=== PATIENT | female | born 1960 ===

== ENCOUNTER → 2022-12-15 | Outpatient (CLI) | payer OTHER ==
--- NOTE | 2022-12-15 14:22 | XR ---
EXAMINATION TYPE: XR humerus LT DATE OF EXAM: 12/15/2022 COMPARISON: None HISTORY: Fall, pain TECHNIQUE: 2 view left humerus FINDINGS: No acute fracture or dislocation is evident. Shoulder and elbow joint spaces as visualized appear normal. Follow up exams can be performed 7-10 days of acute trauma for continued pain. IMPRESSION: 1. No acute osseous abnormality left humerus
--- NOTE | 2022-12-15 14:23 | XR ---
EXAMINATION TYPE: XR forearm LT DATE OF EXAM: 12/15/2022 COMPARISON: None HISTORY: Fall, pain TECHNIQUE: 2 view left forearm FINDINGS: Prior fixation of an ulnar fracture is evident. Radius aligns normally with the humerus. No acute fractures are evident. Anterior fat pad is normal. Follow-up examination can be performed 7-10 days from acute trauma for continued pain. IMPRESSION: 1. No acute osseous abnormality left forearm
--- NOTE | 2022-12-15 14:23 | XR ---
EXAMINATION TYPE: XR hand complete LT DATE OF EXAM: 12/15/2022 2:12 PM INDICATION: Patient age:Female; 62 years old; Reason for study: S40.022A S50.02XA S50.12XA S60.22A; [facility]. COMPARISON: Left lateral radiograph the same date. TECHNIQUE: Frontal, lateral and oblique views of the left hand were obtained. FINDINGS: Diffuse bony demineralization. Normal alignment of the visualized joints. No acute osseous pathology is identified. No osseous erosions. No evidence of soft tissue swelling. IMPRESSION: No acute osseous pathology.
--- NOTE | 2022-12-15 14:25 | XR ---
EXAMINATION TYPE: XR elbow complete LT DATE OF EXAM: 12/15/2022 COMPARISON: None HISTORY: Fall, pain TECHNIQUE: 3 view left elbow FINDINGS: Anterior fat pad is normal. No elevation of posterior fat pad is evident which is normal. The radius aligns normally with the humerus. Prior proximal ulnar open reduction internal fixation is evident. No acute fractures are evident. Follow-up exams can be performed 7-10 days from acute trauma for cont inued pain. IMPRESSION: 1. No acute osseous abnormalities left elbow.
== END | disposition home or self-care (01) ==
LOC: RADXRMAIN 13:48
PROVIDERS: ATTEND Emergency Medicine
DX: S40.022A Contusion of left upper arm, initial encounter (principal); S50.02XA Contusion of left elbow, initial encounter; S50.12XA Contusion of left forearm, initial encounter

== ENCOUNTER → 2024-08-28 | Outpatient (CLI) | payer OTHER ==
--- NOTE | 2024-08-29 07:35 | MM ---
Reason for Exam: Screening (asymptomatic). Last mammogram was performed 2 year(s) and 5 month(s) ago. Patient History: Menarche at age 10. First Full-Term at age 19. Risk Values: Fay 5 year model risk: 0.8%. NCI Lifetime model risk: 3.7%. Prior Study Comparison: 12/17/2001 Bilateral Screening Mammogram, [facility]. 12/19/2002 Bilateral Screening Mammogram, [facility]. 05/23/2006 Bilateral Diagnostic Mammogram, [facility]. Tissue Density: The breasts are extremely dense, which lowers the sensitivity of mammography. Findings: Analyzed By CAD. There is no suspicious group of microcalcifications or new suspicious mass in either breast. Overall Assessment: Benign, BI-RAD 2 Management: Screening Mammogram of both breasts in 1 year. . Patient should continue monthly self-breast exams. A clinical breast exam by your physician is recommended on an annual basis. This exam should not preclude additional follow-up of suspicious palpable abnormalities. Note on Fay scores and lifetime risk: 1. A Fay score greater than 3% is considered moderate risk. If this is the case, consider specialist referral to assess eligibility for a risk reducing agent. 2. If overall lifetime risk for the development of breast cancer is 20% or higher, the patient may qualify for future screening with alternating mammogram and breast MRI. [facility], , 08/29/2024 7:31 AM. Electronically signed and approved by: Ashwin Stringer M.D. Radiolog[facility]
== END | disposition home or self-care (01) ==
LOC: RADMAMWWP 15:33
PROVIDERS: ATTEND Family Medicine
DX: Z12.31 Encounter for screening mammogram for malignant neoplasm of breast (principal); R92.343 Mammographic extreme density, bilateral breasts
CPT/HCPCS: 77067